=== PATIENT | female | born 1955 | race Caucasian/White ===

== ENCOUNTER → 2023-09-02 | Outpatient (CLI) | payer MEDICARE ==
[2023-09-03 01:05] LABS: ALT 20 U/L (8-44); AST 18 U/L (13-35); Chol/HDL Ratio 2.75 Ratio; LDL Cholesterol,Calculated 89.3 mg/dL (0.0-131.0)
== END | disposition home or self-care (01) ==
LOC: LABWHC1 14:11
PROVIDERS: ATTEND Internal Medicine Cardiovascular Disease
DX: E78.2 Mixed hyperlipidemia (principal)
CPT/HCPCS: 36415; 80061; 84450; 84460

== ENCOUNTER → 2024-08-10 | Outpatient (CLI) | payer MEDICARE ==
--- NOTE | 2024-08-10 12:11 | MM ---
Reason for Exam: Screening (asymptomatic). Last mammogram was performed 2 year(s) and 5 month(s) ago. Patient History: Menarche at age 14. First Full-Term at age 30. Postmenopausal. Risk Values: Ju 5 year model risk: 1.9%. NCI Lifetime model risk: 6.4%. Prior Study Comparison: 01/31/2017 Bilateral Screening Mammogram, Unknown. 02/02/2018 Bilateral Screening Mammogram, Unknown. 03/05/2022 Bilateral Screening Mammogram, Unknown. Tissue Density: The breasts are heterogeneously dense, which may obscure small masses. Findings: Analyzed By CAD. There is no suspicious group of microcalcifications or new suspicious mass in either breast. Overall Assessment: Benign, BI-RAD 2 Management: Screening Mammogram of both breasts in 1 year. . Patient should continue monthly self-breast exams. A clinical breast exam by your physician is recommended on an annual basis. This exam should not preclude additional follow-up of suspicious palpable abnormalities. Note on Ju scores and lifetime risk: 1. A Ju score greater than 3% is considered moderate risk. If this is the case, consider specialist referral to assess eligibility for a risk reducing agent. 2. If overall lifetime risk for the development of breast cancer is 20% or higher, the patient may qualify for future screening with alternating mammogram and breast MRI. [facility], , 08/10/2024 12:08 PM. Electronically signed and approved by: Josiah Torres M.D. Radiologis
== END ==
LOC: RADMAMWWP 10:33
PROVIDERS: ATTEND Family Medicine
CPT/HCPCS: 77063; 77067